=== PATIENT | male | born 1990 | race American Indian/Alaskan Native ===

== ENCOUNTER 2017-07-20 15:49 | Emergency (ER) | payer OTHER, MEDICAID ==
--- NOTE | 2017-07-20 16:21 | ED PDOC ---
Arrival/HPI - General Chief Complaint: Lower Extremity Problem/Injury Time Seen by Provider: 07/20/17 16:05 Historian: Patient - History of Present Illness Narrative History of Present Illness (Text): 07/20/17 16:10 27yo male who present with complaint of right foot pain s/p trauma today. States a 150lb box fell on top of his right foot at work this afternoon. He did not take any medication. Denies any other complaint. Past Medical History - Provider Review Nursing Documentation Reviewed: Yes - Infectious Disease Hx of Infectious Diseases: None - Psychiatric Hx Substance Use: No Family/Social History - Physician Review Nursing Documentation Reviewed: Yes Family/Social History: Unknown Family HX Smoking Status: Light Smoker < 10 Cigarettes Daily Hx Alcohol Use: No Hx Substance Use: No Allergies/Home Meds Allergies/Adverse Reactions: Allergies No Known Allergies Allergy (Verified 07/20/17 15:56) Review of Systems - Physician Review All systems were reviewed & negative as marked: Yes - Review of Systems Constitutional: Normal Eyes: Normal ENT: Normal Respiratory: Normal Cardiovascular: Normal Gastrointestinal: Normal Genitourinary Male: Normal Musculoskeletal: Arthralgias (right foot pain) Skin: Normal Neurological: Normal Endocrine: Normal Hemo/Lymphatic: Normal Psychiatric: Normal Physical Exam Vital Signs Reviewed: Yes Vital Signs Temp Pulse Resp BP Pulse Ox 07/20/17 18:03 97.1 F L 82 16 118/82 99 07/20/17 15:51 98.3 F 70 17 118/69 100 Temperature: Afebrile Blood Pressure: Normal Pulse: Regular Respiratory Rate: Normal Appearance: Positive for: Well-Appearing, Non-Toxic, Comfortable Pain Distress: None Mental Status: Positive for: Alert and Oriented X 3 - Systems Exam Head: Present: Atraumatic, Normocephalic Pupils: Present: PERRL Extroacular Muscles: Present: EOMI Conjunctiva: Present: Normal Mouth: Present: Moist Mucous Membranes Neck: Present: Normal Range of Motion Respiratory/Chest: Present: Clear to Auscultation, Good Air Exchange. No: Respiratory Distress, Accessory Muscle Use Cardiovascular: Present: Regular Rate and Rhythm, Normal S1, S2. No: Murmurs Abdomen: Present: Normal Bowel Sounds. No: Tenderness, Distention, Peritoneal Signs Back: Present: Normal Inspection Upper Extremity: Present: Normal Inspection. No: Cyanosis, Edema Lower Extremity: Present: NORMAL PULSES, Normal ROM, Tenderness (Right dorsal foot), Neurovascularly Intact. No: Edema, Swelling Neurological: Present: GCS=15, CN II-XII Intact, Speech Normal Skin: Present: Warm, Dry, Normal Color. No: Rashes Psychiatric: Present: Alert, Oriented x 3, Normal Insight, Normal Concentration Medical Decision Making ED Course and Treatment: 07/20/17 16:56 right foot xray - No acute fracture Adithya wrap and ortho shoe placed. Result DW the pt. Advised to RICE foot. crutches given. - RAD Interpretation Radiology Orders: 07/20/17 16:21 FOOT RIGHT 3 VIEWS ROUTINE [RAD] Stat - Medication Orders Current Medication Orders: Discontinued Medications Ibuprofen (Motrin Tab) 600 mg PO STAT STA Stop: 07/20/17 16:26 Last Admin: 07/20/17 16:44 Dose: 600 mg MAR Pain/Vitals Document 07/20/17 16:44 MS (Rec: 07/20/17 16:45 MS [id number]) Pain Reassessment Is This A Pain ReAssessment? No Sleep Is patient sleeping during reassessment? No Presence of Pain Presence of Pain Yes Pain Scale Used Pain Scale Used Numeric Location Pain Location Body Site Foot Description Intermittent Disposition/Present on Arrival - Present on Arrival Any Indicators Present on Arrival: No History of DVT/PE: No History of Uncontrolled Diabetes: No Urinary Catheter: No History of Decub. Ulcer: No History Surgical Site Infection Following: None - Disposition Have Diagnosis and Disposition been Completed?: Yes Diagnosis: Foot sprain Disposition: HOME/ ROUTINE Disposition Time: 16:55 Patient Plan: Discharge Condition: STABLE Discharge Instructions (ExitCare): Foot Sprain (DC) Additional Instructions: Rest, ice, compress and elevate foot Follow up with your Doctor Return to ED for any new symptoms Prescriptions: Ibuprofen [Motrin Tab] 600 mg PO Q6 #20 tab Referrals: Reno Castrejon MD [Staff Provider] - Follow up with primary [facility] [place] [Outside] - Follow up with primary Forms: Neema (Bulgarian), WORK NOTE
--- NOTE | 2017-07-20 16:53 | RAD ---
PROCEDURE: Right Foot Radiographs. HISTORY: foot pain COMPARISON: None. FINDINGS: BONES: Normal. No fracture. JOINTS: Normal. SOFT TISSUES: Normal. OTHER FINDINGS: None. IMPRESSION: Normal right foot radiographs.
[2017-07-20 18:07] VITALS: BP 118/82; PULSE 82; RESP 16; TEMP 97.1; O2SAT 99
== END 2017-07-20 18:05 | disposition home or self-care (01) ==
LOC: ED 15:49
DX: S93.601A Unspecified sprain of right foot, initial encounter (principal); W20.8XXA Other cause of strike by thrown, projected or falling object, initial encounter; Y99.0 Civilian activity done for income or pay; F17.210 Nicotine dependence, cigarettes, uncomplicated

== ENCOUNTER 2018-02-18 22:14 | Emergency (ER) | payer MEDICAID, OTHER ==
[2018-02-18 23:00] VITALS: BMI 23.7
[2018-02-18 23:01] VITALS: BP 125/79; TEMP 98.4
--- NOTE | 2018-02-18 23:10 | ED PDOC ---
Arrival/HPI - General Historian: Patient - History of Present Illness Narrative History of Present Illness (Text): 02/18/18 23:06 28yo male present with complaint of mild pain and swelling to his left thumb x 3days. States it started after pulling out a cuticle from his nail. Did not take any medication for the pain. Denies fever, chills ,any other complaint. <Tuan Richter A - Last Filed: 02/19/18 00:10> <Tad Rodriguez - Last Filed: 02/22/18 00:14> - General Time Seen by Provider: 02/18/18 22:55 Past Medical History - Provider Review Nursing Documentation Reviewed: Yes - Infectious Disease Hx of Infectious Diseases: None - Psychiatric Hx Substance Use: No <Tuan Richter A - Last Filed: 02/19/18 00:10> Family/Social History - Physician Review Nursing Documentation Reviewed: Yes Family/Social History: Unknown Family HX Smoking Status: Light Smoker < 10 Cigarettes Daily Hx Alcohol Use: No Hx Substance Use: No <Tuan Richter A - Last Filed: 02/19/18 00:10> Allergies/Home Meds <NeelamTuan A - Last Filed: 02/19/18 00:10> <Tad Rodriguez - Last Filed: 02/22/18 00:14> Allergies/Adverse Reactions: Allergies No Known Allergies Allergy (Verified 02/18/18 23:07) Review of Systems - Physician Review All systems were reviewed & negative as marked: Yes - Review of Systems Constitutional: Normal Eyes: Normal ENT: Normal Respiratory: Normal Cardiovascular: Normal Gastrointestinal: Normal Genitourinary Male: Normal Musculoskeletal: Arthralgias (Left thumb pain) Skin: Normal Neurological: Normal Endocrine: Normal Hemo/Lymphatic: Normal Psychiatric: Normal <NeelamTuan A - Last Filed: 02/19/18 00:10> Physical Exam Vital Signs Reviewed: Yes Vital Signs Temp Pulse Resp BP Pulse Ox 02/18/18 22:59 98.4 F 81 19 125/79 100 Temperature: Afebrile Blood Pressure: Normal Pulse: Regular Respiratory Rate: Normal Appearance: Positive for: Well-Appearing, Non-Toxic, Comfortable Pain Distress: None Mental Status: Positive for: Alert and Oriented X 3 - Systems Exam Head: Present: Atraumatic, Normocephalic Pupils: Present: PERRL Extroacular Muscles: Present: EOMI Conjunctiva: Present: Normal Mouth: Present: Moist Mucous Membranes Neck: Present: Normal Range of Motion Respiratory/Chest: Present: Clear to Auscultation, Good Air Exchange. No: Respiratory Distress, Accessory Muscle Use Cardiovascular: Present: Regular Rate and Rhythm, Normal S1, S2. No: Murmurs Abdomen: No: Tenderness, Distention, Peritoneal Signs Back: Present: Normal Inspection Upper Extremity: Present: NORMAL PULSES, Tenderness (surrounding left thumb nail base), Swelling (Mild swelling noted surrounding left thumb nail base), Neurov ascularly Intact. No: Cyanosis, Edema, Temperature Abnormalties Lower Extremity: Present: Normal Inspection. No: Edema Neurological: Present: GCS=15, CN II-XII Intact, Speech Normal Skin: Present: Warm, Dry, Normal Color. No: Rashes Psychiatric: Present: Alert, Oriented x 3, Normal Insight, Normal Concentration <Tuan Richter A - Last Filed: 02/19/18 00:10> Vital Signs Temp Pulse Resp BP Pulse Ox 02/19/18 00:17 76 18 99 02/18/18 22:59 98.4 F 81 19 125/79 100 <Tad Rodriguez - Last Filed: 02/22/18 00:14> Medical Decision Making ED Course and Treatment: 02/19/18 00:11 28yo male in ED for left thumb swelling/pain. Pt have a paronychia. Area was cleansed with peroxide, anaesthetized with 5ml of 1% lido. small incision made over the distal left volar thumb. Pus and blood expressed. Cleansed and dressed. Pt tolerated procedure. Pt placed on Keflex 500mg. Advised to keep wound clean and dry referred to her PMD <NeelamHappiness A - Last Filed: 02/19/18 00:10> - Medication Orders Current Medication Orders: Discontinued Medications Acetaminophen (Tylenol 325mg Tab) 650 mg PO STAT STA Stop: 02/18/18 23:14 Last Admin: 02/18/18 23:44 Dose: 650 mg MAR Pain/Vitals Document 02/18/18 23:44 RD (Rec: 02/18/18 23:44 RD [id number]) Pain Reassessment Is This A Pain ReAssessment? No Sleep Is patient sleeping during reassessment? No Presence of Pain Presence of Pain Yes Cephalexin Monohydrate (Keflex) 500 mg PO STAT STA; Protocol Stop: 02/18/18 23:14 Last Admin: 02/18/18 23:44 Dose: 500 mg <Tad Rodriguez - Last Filed: 02/22/18 00:14> - PA / [employer] / Resident Statement / has reviewed & agrees with the documentation as recorded. <Tad Rodriguez - Last Filed: 02/22/18 00:14> Disposition/Present on Arrival - Present on Arrival Any Indicators Present on Arrival: No History of DVT/PE: No History of Uncontrolled Diabetes: No Urinary Catheter: No History Surgical Site Infection Following: None - Disposition Have Diagnosis and Disposition been Completed?: Yes Disposition Time: 00:05 Patient Plan: Discharge <Tuan Richter - Last Filed: 02/19/18 00:10> <Tad Rodriguez - Last Filed: 02/22/18 00:14> - Disposition Diagnosis: Paronychia Disposition: HOME/ ROUTINE Condition: STABLE Discharge Instructions (ExitCare): Paronychia (DC) Additional Instructions: Follow up with your doctor Return to ED for any new or worsening symptoms Prescriptions: Cephalexin [Keflex] 500 mg PO TID #21 capsule Referrals: Maliha Huerta MD [Medical Doctor] - Follow up [place] primary [facility] [place] - Follow up with primary [facility] [Outside] - Follow up with primary - Incision & Drainage Of Abscess Anesthesia: Lidocaine 1% (5) Prep Used: Betadine Procedure: Incised W/Scalpel Blade#: (11), Drained Pus <Tuan Richter - Last Filed: 02/19/18 00:10>
[2018-02-19 00:38] VITALS: PULSE 76; RESP 18; O2SAT 99
== END 2018-02-19 00:17 | disposition home or self-care (01) ==
LOC: ED 22:14
DX: L03.012 Cellulitis of left finger (principal); F17.210 Nicotine dependence, cigarettes, uncomplicated